=== PATIENT | female | born 1950 | race Caucasian/White ===

== ENCOUNTER → 2017-01-04 | Outpatient (CLI) | payer MEDICARE, OTHER ==
--- NOTE | 2017-01-04 12:47 | REP ---
Left foot four views: There is no fracture or dislocation. There is DIP and PIP joint space narrowing compatible with mild osteoarthritic change. There are degenerative calcifications at the insertion of the Achilles tendon. No foreign bodies. Signed by Michael Rivera MD 01/04/2017 12:39 P
== END ==
LOC: M LRY 12:08
PROVIDERS: ATTEND Nurse Practitioner Family
DX: M79.672 Pain in left foot (principal); M65.272 Calcific tendinitis, left ankle and foot
CPT/HCPCS: 73630; G0463